=== PATIENT | female | born 1945 | race Caucasian/White ===

== ENCOUNTER 2017-10-13 08:51 | Outpatient (CLI) | payer MEDICARE, OTHER ==
--- NOTE | 2017-10-13 13:59 | HP ---
DATE OF SERVICE: 10/13/2017 HISTORY OF PRESENT ILLNESS: Ms. Denis Oliveira is a very pleasant 72-year-old accompanied by her [id number] who presents [facility] for evaluation of bilateral lower extremity edema which has been present for approximately 3 years. The patient states that although she has no open wounds of the right or left lower leg today, she had received treatment with Unna boots when she deve loped an open wound. The patient states that she continues, however to receive dressing changes of U nna boots with the assistance of Home Health. Ms. Oliveira has no other complaints today. She irma es any fever or chills. The patient was referred to the [facility] by Dr. Means. PAST MEDICAL HISTORY: 1. Arthritis. 2. Hypertension. 3. Chronic obstructive pulmonary disease. 4. Peripheral vascular disease. 5. Hypothyroidism. PAST SURGICAL HISTORY: Tonsillectomy as a child. MEDICATIONS: 1. ICAPS. 2. Equate arthritis. 3. Amlodipine. 4. Aspirin 325 mg. 5. Atenolol. 6. Clonidine. 7. Formoterol. 8. Gabapentin. 9. Hydralazine. 10. Levothyroxine. 11. Losartan. 12. Potassium. 13. Pravastatin. ALLERGIES: CODEINE, PEROXIDE and TAPE. SOCIAL HISTORY: Significant for tobacco use of 2 packs of cigarettes per day for 41 years. The morelia ent states that she stopped smoking in 2005. The patient admits to the social consumption of alcohol in the past. FAMILY HISTORY: Significant for diabetes mellitus. The patient states that she has 2 sisters and a grandmother who were diagnosed with diabetes mellitus. Family history is negative for coronary arter y disease. REVIEW OF SYSTEMS: The patient reports the use of compression garments in the past. PHYSICAL EXAMINATION: VITAL SIGNS: Temperature 98.0, pulse 85, respirations 21, blood pressure 173/72. GENERAL: A 72-year-old female sitting on chair in examination room in no acute distress. HEENT: Normocephalic, atraumatic. NECK: No nuchal rigidity. CHEST: Clear to auscultation. CARDIOVASCULAR: Regular rate and rhythm. ABDOMEN: Soft. EXTREMITIES: Edema of the right and left lower extremities is present on exam today. No open wounds are present over the right or left lower legs. No cellulitis of the right or left lower extremity i s present. No maceration of the skin of the right or left lower extremity is present. A dorsalis pe dis pulse is palpable on the right and on the left. Stasis dermatitis is present over the right and left lower legs. The patient also has discoloration of the skin of the right and left lower leg seco ndary to hemosiderin deposition. Circumferences of the right and left lower extremities at the ankle , calf and knee are right lower extremity 31 cm, 51 cm, and 51 cm; left lower extremity 37 cm, 54 cm and 62 cm. NEUROLOGIC: Grossly nonfocal. ASSESSMENT AND PLAN: 1. Lymphedema tarda. The present dressing changes of Unna boots with the assistance of Home Health will continue. Arrangements will also be made for the initiation of in-home lymphedema therapy with a pneumatic pump. I will see Ms. Oliveira again on 10/21/2017. At this time, arrangements will con tinue for the initiation of in-home lymphedema therapy. The patient and her [id number] understan ds and are in agreement with the preceding treatment plan. 2. Arthritis. 3. Hypertension. 4. Chronic obstructive pulmonary disease. 5. Peripheral vascular disease. 6. Hypothyroidism.
== END 2017-10-13 08:52 | disposition home or self-care (01) ==
LOC: WCC 08:51
PROVIDERS: ATTEND Family Medicine
DX: I89.0 Lymphedema, not elsewhere classified (principal); M19.90 Unspecified osteoarthritis, unspecified site; I10 Essential (primary) hypertension; J44.9 Chronic obstructive pulmonary disease, unspecified; I73.9 Peripheral vascular disease, unspecified; E03.9 Hypothyroidism, unspecified
CPT/HCPCS: 29581 ×2; 97139; G0463; 99203

== ENCOUNTER 2017-10-21 10:22 | Outpatient (CLI) | payer MEDICARE, OTHER ==
--- NOTE | 2017-10-21 16:02 | PRG ---
DATE OF SERVICE: 10/21/2017 HISTORY: Ms. Denis Oliveira is a very pleasant 72-year-old who presents to the [facility] f or evaluation of bilateral lower extremity edema, which the patient stated had been present for appro ximately 3 years when she initially presented to the [facility] Center. Since her last visit to the Wound Center, Ms. Oliveira has been receiving dressing changes of Unna boots with the assistance of Home Health. Ms. Oliveira has no other complaints today. She denies any fever or chills. The patient w as referred to the Wound Center by Dr. Means. PHYSICAL EXAMINATION: VITAL SIGNS: Temperature 97.6, pulse 45, respirations 14, blood pressure 153/69. EXTREMITIES: A dorsalis pedis pulse is palpable on the right and on the left. Circumferences of the right lower extremity at the ankle, calf and knee are 32.0 cm, 33.5 cm, and 50.5 cm. Circumferences of the left lower extremity at the ankle, calf and knee are 34 cm, 36 cm, and 52.5 cm. ASSESSMENT AND PLAN: 1. Lymphedema tarda. The present dressing changes of Unna boots with the assistance of Home Health will be continued. Arrangements will also continue for the initiation of in-home lymphedema therapy with a pneumatic pump. I will see Ms. Oliveira again on 11/18/2017. 2. Arthritis. 3. Hypertension. 4. Chronic obstructive pulmonary disease. 5. Peripheral vascular disease. 6. Hypothyroidism.
== END 2017-10-21 10:23 | disposition home or self-care (01) ==
LOC: WCC 10:22
PROVIDERS: ATTEND Family Medicine
DX: I89.0 Lymphedema, not elsewhere classified (principal); J44.9 Chronic obstructive pulmonary disease, unspecified; M19.90 Unspecified osteoarthritis, unspecified site; I10 Essential (primary) hypertension; I73.9 Peripheral vascular disease, unspecified; E03.9 Hypothyroidism, unspecified
CPT/HCPCS: 97139; G0463; 99213

== ENCOUNTER 2017-11-18 09:45 | Outpatient (CLI) | payer MEDICARE, OTHER ==
--- NOTE | 2017-11-18 10:51 | PRG ---
DATE OF SERVICE: 11/18/2017 HISTORY: Ms. Denis Oliveira is a very pleasant 72-year-old who presents to the [facility] f or evaluation of bilateral lower extremity edema which the patient stated had been present for approx imately 3 years when she initially presented to the [facility] Center. The patient states that she is no longer receiving dressing changes of Unna boots with the assistance of Home Health because all wounds of her right and left lower legs have healed completely. The patient has no other complaints today. She denies any fever or chills. Ms. Oliveira was referred to the Wound Center by Dr. Means. PHYSICAL EXAMINATION: VITAL SIGNS: Stable and afebrile. EXTREMITIES: Circumferences of the right lower extremity at the ankle, calf and knee are 32.5 cm, 43 cm, and 37.5 cm. Circumferences of the left lower extremity at the ankle, calf and knee are 37 cm, 51 cm, and 55 cm. ASSESSMENT AND PLAN: 1. Lymphedema tarda. Dressing changes of Kerlix, Dago bandages and stockinette to the right and left feet and lower legs will be continued with the assistance of Home Health. Arrangements will also co ntinue for the initiation of in-home lymphedema therapy with a pneumatic pump. I will see Ms. Ambrosio jaramillo again on 12/16/2017. 2. Arthritis. 3. Hypertension. 4. Chronic obstructive pulmonary disease. 5. Peripheral vascular disease. 6. Hypothyroidism.
== END 2017-11-18 09:46 | disposition home or self-care (01) ==
LOC: WCC 09:45
PROVIDERS: ATTEND Family Medicine
DX: I89.0 Lymphedema, not elsewhere classified (principal); M19.90 Unspecified osteoarthritis, unspecified site; I10 Essential (primary) hypertension; J44.9 Chronic obstructive pulmonary disease, unspecified; I73.9 Peripheral vascular disease, unspecified; E03.9 Hypothyroidism, unspecified
CPT/HCPCS: 97139; G0463; 99213

== ENCOUNTER 2017-12-16 09:48 | Outpatient (CLI) | payer MEDICARE, OTHER ==
--- NOTE | 2017-12-16 11:00 | PRG ---
DATE OF SERVICE: 12/16/2017 HISTORY: Ms. Denis Oliveira is a very pleasant 72-year-old who presents to the [facility] f or evaluation of bilateral lower extremity edema which the patient stated had been present for approx imately 3 years when she initially presented to the [facility] Center. The patient previously stated that she was no longer receiving dressing changes of the Unna boots with the assistance of Home Health be cause all wounds of her right and left lower legs had healed completely. The patient has no other co mplaints today. She denies any fever or chills. The patient was referred to the Wound Center by Dr. Means. PHYSICAL EXAMINATION: VITAL SIGNS: Temperature 98.0, pulse 47, respirations 23, blood pressure 128/72. EXTREMITIES: Circumferences of the right lower extremity at the ankle, calf and knee are 35.5 cm, 44 .5 cm, and 50.5 cm. Circumferences of the left lower extremity at the ankle, calf and knee are 38.0 cm, 53.5 cm and 58.0 cm. Serous drainage is noted over the left lateral lower leg. No open wounds a re visible over the right or left lower leg. No cellulitis of the right or left lower leg is present . A dorsalis pedis pulse is palpable on the right and on the left. Hyperpigmentation of the skin of the right and left lower legs is noted on exam today. ASSESSMENT AND PLAN: 1. Lymphedema tarda. Dressing changes of Kerlix, Dago bandages and stockinette to the right and left feet and lower legs will be continued with the assistance of Home Health. An ABD will also be appli ed to the left lateral lower leg today prior to the preceding dressings for the drainage of the left lateral lower leg noted on exam today. Arrangements will continue for the initiation of in-home lymp hedema therapy with a pneumatic pump. Ms. Oliveira will be discharged from clinic today with follow up on a p.r.n. basis. The patient understands and is in agreement with the preceding treatment plan. 2. Arthritis. 3. Hypertension. 4. Chronic obstructive pulmonary disease. 5. Peripheral vascular disease. 6. Hypothyroidism.
== END 2017-12-16 09:49 | disposition home or self-care (01) ==
LOC: WCC 09:48
PROVIDERS: ATTEND Family Medicine
DX: I89.0 Lymphedema, not elsewhere classified (principal); R60.0 Localized edema; J44.9 Chronic obstructive pulmonary disease, unspecified; I73.9 Peripheral vascular disease, unspecified; E03.9 Hypothyroidism, unspecified; I10 Essential (primary) hypertension; M19.90 Unspecified osteoarthritis, unspecified site
CPT/HCPCS: 97602